=== PATIENT | female | born 1955 | race Caucasian/White ===

== ENCOUNTER 2024-12-16 13:51 | Emergency (ER) | payer MEDICARE ==
[2024-12-16 15:18] VITALS: BP 150/82; PULSE 61
== END 2024-12-16 15:34 | disposition home or self-care (01) ==
LOC: LL.ED 13:51
DX: M17.11 Unilateral primary osteoarthritis, right knee (principal); I10 Essential (primary) hypertension; E78.00 Pure hypercholesterolemia, unspecified; Z88.1 Allergy status to other antibiotic agents; Z88.0 Allergy status to penicillin; Z88.2 Allergy status to sulfonamides; Z88.8 Allergy status to other drugs, medicaments and biological substances; Z79.899 Other long term (current) drug therapy
CPT/HCPCS: 73562-RT; 73565; 99283